=== PATIENT | female | born 1970 | race Caucasian/White ===

== ENCOUNTER → 2018-04-18 | Outpatient (CLI) | payer OTHER ==
[~2018-04-18] MED LIST: ACET-1311 PO; IBUP-1050 PO; PRENTAB26 PO
[2018-04-18 10:02] LABS: BLOOD UREA NITROGEN 6 mg/dl (7-18); CALCIUM 8.3 mg/dl (8.5-10.1); CARBON DIOXIDE 28 mmol/L (21-32); CHOLESTEROL 187 mg/dl (0-200); CREATININE 0.76 mg/dl (0.60-1.20); GLUCOSE 96 mg/dl (70-99); LDL CHOLESTEROL CALCULATED 103 mg/dl; POTASSIUM 3.8 mmol/L (3.5-5.1); SODIUM 137 mmol/L (136-145)
== END | disposition home or self-care (01) ==
LOC: C.LAB1850 07:44
PROVIDERS: ATTEND Nurse Practitioner Family
DX: Z00.00 Encounter for general adult medical examination without abnormal findings (principal); Z13.220 Encounter for screening for lipoid disorders; Z13.1 Encounter for screening for diabetes mellitus